=== PATIENT | female | born 1970 | race American Indian/Alaskan Native ===

== ENCOUNTER 2017-07-26 00:50 | Inpatient (IN) | payer OTHER ==
--- NOTE | 2017-07-26 01:32 | ED PDOC ---
Arrival/HPI - General Chief Complaint: ENT Problem Time Seen by Provider: 07/26/17 01:19 Historian: Patient - History of Present Illness Narrative History of Present Illness (Text): 07/26/17 01:23 Lucy Mays is a 47 year old female, whose past medical history includes hypertension and diabetes, who presents to the Emergency department complaining of epistaxis. Patient states she has been experiencing intermittent nosebleeds tonight/generalized malaise. Patient notes her blood pressure has been elevated. Patient reports she has not been compliant with her Amlodipine and Metoprolol because she is unable to afford them. Patient denies any fever, chills, chest pain, shortness of breath, nausea, vomiting, back pain, neck pain , headache, dizziness, or any other complaints. Symptom Onset: Gradual Symptom Course: Unchanged Activities at Onset: Light Context: Home Past Medical History - Provider Review Nursing Documentation Reviewed: Yes - Cardiac Hx Hypertension: Yes - Endocrine/Metabolic Hx Diabetes Mellitus Type 2: Yes - Psychiatric Hx Substance Use: No Family/Social History - Physician Review Nursing Documentation Reviewed: Yes Family/Social History: Unknown Family HX Smoking Status: no Hx Alcohol Use: No Hx Substance Use: No Allergies/Home Meds Allergies/Adverse Reactions: Allergies Penicillins Adverse Reaction (Verified 07/26/17 01:01) RASH Home Medications: Home Meds Medication Instructions Recorded Confirmed No Known Home Med 07/26/17 07/26/17 Review of Systems - Physician Review All systems were reviewed & negative as marked: Yes - Review of Systems Constitutional: Normal. absent: Fevers Eyes: Normal ENT: Epistaxis Respiratory: Normal. absent: SOB, Cough Cardiovascular: Other (+high blood pressure). absent: Chest Pain Gastrointestinal: Normal. absent: Abdominal Pain, Diarrhea, Nausea, Vomiting Genitourinary Female: Normal. absent: Dysuria, Frequency, Hematuria, Urine Output Changes Musculoskeletal: Normal. absent: Back Pain, Neck Pain Skin: Normal. absent: Rash Neurological: Normal. absent: Headache, Dizziness Endocrine: Normal Hemo/Lymphatic: Normal Psychiatric: Normal Physical Exam Vital Signs Reviewed: Yes Vital Signs Temp Pulse Resp BP Pulse Ox 07/26/17 04:51 89 18 162/106 H 100 07/26/17 04:39 87 18 152/119 H 96 07/26/17 04:35 86 164/97 H 07/26/17 04:19 85 168/101 H 07/26/17 04:01 80 18 186/113 H 96 07/26/17 03:45 102 H 22 168/21 H 96 07/26/17 02:41 101 H 22 225/132 H 95 07/26/17 01:40 106 H 18 217/137 H 97 07/26/17 01:01 97.7 F 64 18 202/135 H 96 Temperature: Afebrile Blood Pressure: Hypertensive Pulse: Regular Respiratory Rate: Normal Appearance: Positive for: Well-Appearing, Non-Toxic, Comfortable Pain Distress: None Mental Status: Positive for: Alert and Oriented X 3 - Systems Exam Head: Present: Atraumatic, Normocephalic Pupils: Present: PERRL Extroacular Muscles: Present: EOMI Conjunctiva: Present: Normal Mouth: Present: Moist Mucous Membranes Pharnyx: Present: Normal. No: ERYTHEMA, EXUDATE, TONSILS ENLARGED, Peritonsilar Swelling, Uvular Deviation, Muffled/Hoarse Voice, Strider, Soft Palate/Uvular Edema Nose (External): Present: Atraumatic Nose (Internal): Present: No Active Bleeding (Dry blood in left anterior naris, no active bleeding noted) Neck: Present: Normal Range of Motion Respiratory/Chest: Present: Clear to Auscultation, Good Air Exchange. No: Respiratory Distress, Accessory Muscle Use Cardiovascular: Present: Regular Rate and Rhythm, Normal S1, S2. No: Murmurs Abdomen: Present: Normal Bowel Sounds. No: Tenderness, Distention, Peritoneal Signs Back: Present: Normal Inspection Upper Extremity: Present: Normal Inspection. No: Cyanosis, Edema Lower Extremity: Present: Normal Inspection. No: Edema Neurological: Present: GCS=15, CN II-XII Intact, Speech Normal Skin: Present: Warm, Dry, Normal Color. No: Rashes Psychiatric: Present: Alert, Oriented x 3, Normal Insight, Normal Concentration Medical Decision Making ED Course and Treatment: 07/26/17 01:24 Impression: 47 year old female complaining of epistaxis and hypertension tonight. Plan: -- EKG -- Chest X-ray -- Labs, cardiac enzymes -- Catapres -- Reassess and disposition Progress Notes: 07/26/17 03:07 Reviewed EKG, sinus tachycardia at 101 bpm. LVH. Non-specific T wave changes laterally. 07/26/17 04:26 Chest X-ray reviewed, shows no acute processes. 07/26/17 04:31 Case discussed with medical records field technician protective signal operations supervisor, who is aware and agrees with plan. 07/26/17 04:[address] Jones, machine maintenance mechanic, who is aware and agrees with plan. Accepts pt in to hospitalist service. Pt will be admitted to the ICU for hypertensive emergency and uncontrolled diabetes mellitus. - Critical Care Critical Care Minutes: 30 minutes - Lab Interpretations Lab Results: 07/26/17 02:59 07/26/17 02:59 Lab Results 07/26/17 04:58: POC Glucose (mg/dL) 416 H* 07/26/17 02:59: WBC 9.9, RBC 5.00, Hgb 13.5, Hct 40.4, MCV 80.8, MCH 27.0, MCHC 33.4, RDW 14.0, Plt Count 313, MPV 10.5 07/26/17 02:59: Sodium 136, Potassium 4.1, Chloride 98, Carbon Dioxide 28, Anion Gap 14, BUN 25 H, Creatinine 1.2, Est GFR ( Amer) 58, Est GFR (Non- Af Amer) 48, Random Glucose 558 H*, Calcium 9.5, Total Bilirubin 0.3, AST 24, ALT 39, Alkaline Phosphatase 132 H, Lactate Dehydrogenase 685, Total Creatine Kinase 88, Troponin I 0.10, Total Protein 7.4, Albumin 3.6, Globulin 3.8, Albumin/Globulin Ratio 1.0 L 07/26/17 02:59: PT 10.6, INR 0.93, APTT 32.2 07/26/17 02:39: POC Glucose (mg/dL) 432 H* - RAD Interpretation Radiology Orders: 07/26/17 02:41 CHEST PORTABLE [RAD] Stat - EKG Interpretation Interpreted by ED Physician: Yes Type: 12 lead EKG - Medication Orders Current Medication Orders: Sodium Chloride (Sodium Chloride 0.9%) 1,000 mls @ 100 mls/hr IV .Q10H XENIA Last Admin: 07/26/17 03:28 Dose: 100 mls/hr eMAR Start Stop Document 07/26/17 03:28 MARU (Rec: 07/26/17 03:28 RG [id number]) Intravenous Solution Start Date 07/26/17 Start Time 03:28 Labetalol HCl 100 mg/ Sodium (Chloride) 100 mls @ 60 mls/hr IV .Q1H40M PRN; Protocol; 1 MG/MIN PRN Reason: TITRATE PER MD ORDER Last Admin: 07/26/17 04:19 Dose: 60 mls/hr eMAR Start Stop Document 07/26/17 04:19 RG (Rec: 07/26/17 04:19 RG [id number]) Intravenous Solution Start Date 07/26/17 Start Time 04:19 MAR Pulse and Blood Pressure Document 07/26/17 04:19 RG (Rec: 07/26/17 04:19 RG [id number]) Pulse Pulse Rate (60-90 beats/min) 85 Blood Pressure Blood Pressure (100/60-150/90 mm Hg) 168/101 Discontinued Medications Clonidine HCl (Catapres) 0.2 mg PO STAT STA Stop: 07/26/17 01:28 Last Admin: 07/26/17 01:40 Dose: 0.2 mg MAR Pulse and Blood Pressure Document 07/26/17 01:40 RG (Rec: 07/26/17 01:40 RG [id number]) Pulse Pulse Rate (60-90 beats/min) 106 Blood Pressure Blood Pressure (100/60-150/90 mm Hg) 217/137 Insulin Human Regular (Humulin R) 10 units SC STAT STA Stop: 07/26/17 02:45 Last Admin: 07/26/17 03:23 Dose: 10 units MAR Blood Glucose Document 07/26/17 03:23 RG (Rec: 07/26/17 03:27 RG [id number]) Blood Glucose Finger Stick Blood Glucose (70-120) 432 Subcutaneous Administrations Document 07/26/17 03:23 RG (Rec: 07/26/17 03:27 RG [id number]) Injection Site MAR Injection Site Left Arm Charges for Administration # of Subcutaneous Administrations 1 Labetalol HCl (Trandate) 20 mg IV STAT STA Stop: 07/26/17 02:45 Last Admin: 07/26/17 03:27 Dose: 20 mg eMAR Start Stop Document 07/26/17 03:27 RG (Rec: 07/26/17 03:27 RG [id number]) Intravenous Solution Start Date 07/26/17 Start Time 03:27 End Date 07/26/17 End time 03:29 Total Infusion Time 2 - Scribe Statement The provider has reviewed the documentation as recorded by the Scribcande Ceballos All medical record entries made by the Scribe were at my direction and personally dictated by me. I have reviewed the chart and agree that the record accurately reflects my personal performance of the history, physical exam, medical decision making, and the department course for this patient. I have also personally directed, reviewed, and agree with the discharge instructions and disposition. Disposition/Present on Arrival - Present on Arrival Any Indicators Present on Arrival: No History of DVT/PE: No History of Uncontrolled Diabetes: No Urinary Catheter: No History of Decub. Ulcer: No History Surgical Site Infection Following: None - Disposition Have Diagnosis and Disposition been Completed?: Yes Diagnosis: Hypertensive emergency, Uncontrolled diabetes mellitus Disposition: HOSPITALIZED Disposition Time: 05:01 Patient Plan: Admission Patient Problems: Current Active Problems Problem Status Onset Hypertensive emergency Acute Uncontrolled diabetes mellitus Acute Condition: STABLE Forms: [employer] ([place])
[2017-07-26] MEDS ORDERED: Insulin Regular 1 UNITS/0.01 ML ML SC STA (02:44)
[2017-07-26] MEDS ORDERED: Labetalol 5 mg/ml Inj 20ML IV STA (02:44)
[2017-07-26] MEDS ORDERED: Sodium Chloride 0.9% 1,000 ML IV SCH (02:45)
[2017-07-26] MEDS ORDERED: Labetalol 100 MG in Sodium Chloride 0.9% 80 ML IV PRN (03:34)
[2017-07-26 04:04] LABS: INR 0.93 (0.93-1.08); PARTIAL THROMBOPLASTIN TIME 32.2 Seconds (25.1-36.5); PROTHROMBIN TIME 10.6 SECONDS (9.4-12.5)
[2017-07-26 04:10] LABS: HEMOGLOBIN 13.5 g/dL (12.0-16.0); MEAN CELL VOLUME 80.8 fl (80.0-105.0); MEAN CORPUSCULAR HGB CONC 33.4 g/dl (31.0-37.0); MEAN PLATELET VOLUME 10.5 fl (7.0-11.0); WHITE BLOOD COUNT 9.9 10^3/ul (4.5-11.0)
[2017-07-26 04:17] LABS: TROPONIN I 0.1 ng/mL
[2017-07-26 04:46] LABS: ALBUMIN 3.6 g/dL (3.0-4.8); CALCIUM 9.5 mg/dL (8.4-10.5)
--- NOTE | 2017-07-26 06:15 | CP.PCM.HP ---
History of Present Illness - History of Present Illness History of Present Illness: PGY-[address] Jones ICU admission: Hypertensive emergency, Uncontrolled diabetes mellitus Ms Mays, 47 AAF, with PMHx migraine, HTN/HLD, DM2, on every other day aspirin, comes in here for prolonged epistaxis. Pt started nose bleed at 11:30pm as she gets ready to bed. Pt states that the blood looks bright red, and the amount of the bleed can fill a cup. She traveled via [place] and nose bleed stopped prior to ER arrival. Pt has a hx of nose bleed episodes about 1-2 times per week, usually after blowing her nose. Pt has a recent sinusitis x 2 week with sneezing , denying coughs. In the ED, her BP was found to be 225/130s. Pt lost her insurance and not able to refill her blood pressure medications. She was on metoprolol and amlodipine. Amlodipine was last taken in Jan 2017. Metoprolol was last taken last month. At baseline, pt sleep with >3 pillows for easy breathing. Pt has chronic leg swelling problems HR 85, 176/106, SaO2 96 Her blood glucose was 558. Gap 10 Trops 0.10 EKG: sinus tachy 101, LVH. T-wave inversion V6-I. QTc 459 CXR: pending read ED gave clonidine 0.2, insulin 10, labetalol 20. Now on trandate gtt, NS @100 ROS Denies F/C/Headahce/blurry vision Denies CP, SOB, N/V/D/C (+) freqency urination (+) nocturia. Denies dysuria Denies numbness/tingling. (+) leg swelling PMH HTN/HLD Gastritis Migraine LAVERNE from enlarged tonsil PSH FH Brother - head cancer father - DM, lung CA. Not smoking. (+) ETOH grandfather - stomach cancer Aunt - DM SH Denies smoke, drink, drug All Lemon, Penicillins, (one more antibiotics that pt daughter will follow up__) Med Metformin, amlodipine, metoprolol PMD No PMD due to lost insurance Used to see Dr Bridges, [facility], last year July Pharm No longer use. [facility], [place], [place] Present on Admission - Present on Admission Any Indicators Present on Admission: Yes History of Uncontrolled Diabetes: Yes Past Patient History - Past Social History Smoking Status: no - CARDIAC Hx Hypertension: Yes - ENDOCRINE/METABOLIC Hx Diabetes Mellitus Type 2: Yes - PSYCHIATRIC Hx Substance Use: No Meds Allergies/Adverse Reactions: Allergies Allergy/AdvReac Type Severity Reaction Status Date / Time Penicillins AdvReac RASH Verified 07/26/17 01:01 Physical Exam - Constitutional Appears: No Acute Distress - Head Exam Head Exam: ATRAUMATIC, NORMAL INSPECTION, NORMOCEPHALIC - Eye Exam Eye Exam: EOMI, Normal appearance, PERRL. absent: Scleral icterus Pupil Exam: NORMAL ACCOMODATION - ENT Exam ENT Exam: Mucous Membranes Dry Additional comments: dry blood visible near L nostril normal pharynx - Neck Exam Additional comments: supple - Respiratory Exam Respiratory Exam: Clear to Auscultation Bilateral, NORMAL BREATHING PATTERN. absent: Rhonchi, Wheezes, Respiratory Distress - Cardiovascular Exam Cardiovascular Exam: REGULAR RHYTHM, +S1, +S2. absent: Systolic Murmur - GI/Abdominal Exam GI & Abdominal Exam: Normal Bowel Sounds, Soft. absent: Tenderness - Extremities Exam Extremities exam: Positive for: pedal edema, pedal pulses present. Negative for : calf tenderness - Neurological Exam Neurological exam: Alert, Oriented x3 - Psychiatric Exam Psychiatric exam: Normal Affect, Normal Mood - Skin Skin Exam: Dry, Warm Results - Vital Signs Recent Vital Signs: Last Vital Signs Temp 97.7 F 07/26/17 01:01 Pulse 85 07/26/17 05:21 Resp 22 07/26/17 05:21 BP 176/106 H 07/26/17 05:21 Pulse Ox 96 07/26/17 05:21 - Labs Result Diagrams: 07/26/17 02:59 07/26/17 02:59 Assessment & Plan - Assessment and Plan (Free Text) Plan: Ms Mays, 47 AAF, with PMHx migraine, HTN/HLD on every other day ASA, DM2, LAVERNE from enlarged tonsilon every other day aspirin, comes in here for prolonged epistaxis, found to have hypertensive emergency (BP @ 225/130s) with questionable signs of end organ damage and uncontrolled diabetes. Neuro - Watch migraine Pulm - LAVERNE with nose mucosal bleech. Hold CPAP HS. Monitor PaO2. Card - hold ASA - decrease 20-25% BP at a time - on labetalol gtt - trend trops - monitor labs for signs of end organ damage GI - gastritis, add protonix - HHD/CL diet - NS @ 100 Endo - insulin sliding - low, accucheck - TSH, a1c - diabetic education Prophylaxis = PTX + SCD s/r/d/w Dr. Jones
[2017-07-26] MEDS ORDERED: Pantoprazole 40 mg EC Tab PO SCH (06:40)
[2017-07-26] MEDS ORDERED: Insulin Lispro (humaLOG) MEDIUM Coverage SC SCH (07:30)
[2017-07-26] MEDS: Insulin Reg-HIGH-Coverage SC SCH ×3 (08:30→16:58)
[2017-07-26] MEDS: Pantoprazole 40 mg EC Tab PO SCH (08:31)
[2017-07-26 09:16] VITALS: BMI 50.6
[2017-07-26] MEDS ORDERED: Influenza Vaccine 60 mcg/0.5 mL SYR (4YR UP) IM ONE (09:16)
[2017-07-26] MEDS ORDERED: Pneumococcal 23-Valent Vaccine IM ONE (09:16)
[2017-07-26] MEDS: Metoprolol Succinate 50 mg XL Tab PO SCH (09:22)
[2017-07-26 09:30] LABS: HDL CHOLESTEROL 35 mg/dL (29-60)
[2017-07-26 09:41] LABS: LDL CHOLESTEROL 244 mg/dL (0-129)
[2017-07-26 10:13] LABS: TROPONIN I 0.09 ng/mL
--- NOTE | 2017-07-26 10:25 | RAD ---
HISTORY: hypertensive COMPARISON: No prior. FINDINGS: LUNGS: No active pulmonary disease. PLEURA: No significant pleural effusion identified, no pneumothorax apparent. CARDIOVASCULAR: No radiographic findings to suggest acute or significant cardiovascular disease. OSSEOUS STRUCTURES: No significant abnormalities. VISUALIZED UPPER ABDOMEN: Normal. OTHER FINDINGS: None. IMPRESSION: No active disease.
[2017-07-26 10:47] LABS: HEMOGLOBIN 12.5 g/dL (12.0-16.0); MEAN CELL VOLUME 80.6 fl (80.0-105.0); MEAN CORPUSCULAR HEMOGLOBIN 27.2 pg (25.0-35.0); MEAN CORPUSCULAR HGB CONC 33.8 g/dl (31.0-37.0); MEAN PLATELET VOLUME 10.5 fl (7.0-11.0); RBC 4.59 10^6/uL (3.5-6.1); RED CELL DISTRIBUTION WIDTH 13.9 % (11.5-14.5); WHITE BLOOD COUNT 8.8 10^3/ul (4.5-11.0)
[2017-07-26 11:19] LABS: ALBUMIN 3.3 g/dL (3.0-4.8); CALCIUM 9.3 mg/dL (8.4-10.5)
--- NOTE | 2017-07-26 11:21 | CARD ---
APPROVED REPORT EKG Measurement Heart [id number] <Conclusion> Sinus tachycardia Minimal voltage criteria for LVH, may be normal variant T wave abnormality, consider lateral ischemia Abnormal ECG
--- NOTE | 2017-07-26 16:32 | CARD ---
APPROVED REPORT EXAM: Two-dimensional and M-mode echocardiogram with Doppler and color Doppler. INDICATION UNCONTROLLED HTN 2D DIMENSIONS Left Atrium (2D)4.3 (1.6-4.0cm)IVSd1.6 (0.7-1.1cm) LVDd4.4 (3.9-5.9cm)PWd1.5 (0.7-1.1cm) LVDs3.1 (2.5-4.0cm)FS (%) 28.5 % LVEF (%)55.2 (>50%) M-Mode DIMENSIONS Aortic Root3.00 (2.2-3.7cm)Aortic Cusp Exc.1.60 (1.5-2.0cm) Aortic Valve AoV Peak Xeoskcff216.0cm/Viraj Peak GR.16mmHg Mitral Valve MV E Twdljsiv94.5cm/sMV A Mpnwakks92.7cm/sE/A ratio0.8 TDI Lateral E' Peak V6.43cm/sMedial E' Peak V5.85cm/sE/Lateral E'11.4 E/Medial E'12.6 Pulmonary Valve PV Peak Lshonhxx82.0cm/sPV Peak Grad.2mmHg Tricuspid Valve TR Peak Ttwtsbcb234pl/sRAP [id number] Peak Gr.17mmHg [id number] LEFT VENTRICLE The left ventricle is normal size. There is mild concentric left ventricular hypertrophy. There is normal LV segmental wall motion.LV Ej.Fr: 55% Transmitral Doppler flow pattern is Grade I-abnormal relaxation pattern. RIGHT VENTRICLE The right ventricle is normal size. The right ventricular systolic function is normal. ATRIA The left atrium is mildly dilated. The interatrial septum is intact with no evidence for an atrial septal defect. AORTIC VALVE The aortic valve is thickened but opens well. MITRAL VALVE The mitral valve is thickened but opens well. Mitral regurgitation is mild. TRICUSPID VALVE The tricuspid valve is normal in structure. There is trace tricuspid regurgitation. PERICARDIAL EFFUSION There is no pericardial effusion. <Conclusion> The left ventricle is normal size. There is mild concentric left ventricular hypertrophy. There is normal LV segmental wall motion.LV Ej.Fr: 55% Transmitral Doppler flow pattern is Grade I-abnormal relaxation pattern. The right ventricle is normal size. The right ventricular systolic function is normal. The left atrium is mildly dilated. The interatrial septum is intact with no evidence for an atrial septal defect. The aortic valve is thickened but opens well. The mitral valve is thickened but opens well. Mitral regurgitation is mild. The tricuspid valve is normal in structure. There is trace tricuspid regurgitation. There is no pericardial effusion.
[2017-07-26 16:34] VITALS: O2SAT 97
[2017-07-26 17:00] LABS: TROPONIN I 0.07 ng/mL
[2017-07-26] MEDS ORDERED: Insulin Detemir 100 units/ml Vial (Levemir) SC SCH (22:00)
[2017-07-26] MEDS ORDERED: Insulin Human NPH/Reg 70/30 Vial(3 ml) SC SCH (22:00)
--- NOTE | 2017-07-27 06:05 | CON ---
DATE: 07/26/2017 REASON FOR THE CONSULTATION: Uncontrolled hypertension, diabetes, obesity, noncompliance with the medication, nose bleed. BRIEF CLINICAL HISTORY: This is a 47-year-old -[place] female with past history significant for nose bleed, hypertension, diabetes, obesity, noncompliance with medication, not taking medicines since last summer because lost job and insurance. Came in yesterday with nose bleed. Blood pressure found to be 225/130. Th patient was admitted to ICU, started labetalol in the ICU, currently without any medication. Cardiology consult was called for evaluation and management. The patient denies any chest pain, shortness of breath, or any palpitation. Daughter is at the bedside. PAST MEDICAL HISTORY: Significant for hypertension, hyperlipidemia, and diabetes. SOCIAL HISTORY: Denies smoking. Denies any history of alcohol abuse. FAMILY HISTORY: Noncontributory. No history of coronary artery disease. MEDICATIONS: The patient was taking Toprol-XL possibly 50 mg and Norvasc 10 possibly, last medication took in summer and then she stopped taking medication as the medication ran out and ran out the insurance. Prior to coming to the hospital, she took only one Toprol. Came essentially with a nose bleed. Denies any chest pain. PAST SURGICAL HISTORY: Significant for cholecystectomy 20 years ago. CURRENT MEDICATIONS: None. As mentioned above. ALLERGIES: NO KNOWN DRUG ALLERGIES. REVIEW OF SYSTEMS: As per HPI. PHYSICAL EXAMINATION: GENERAL: Height of the patient is 5 feet 1 inch. Weight of the patient is 268 pounds. Body mass index 50 kg/m2. VITAL SIGNS: Temperature afebrile, heart rate 90, blood pressure 176/116. HEENT: PERRLA. Extraocular muscles intact. NECK: Supple. No carotid bruit. No thyromegaly. CHEST: Clear to auscultation. HEART: S1 and S2 regular. ABDOMEN: Soft. EXTREMITIES: Clubbing, cyanosis negative. LABORATORY DATA: Blood workup as follows: WBC 9.9, hemoglobin 13.5, hematocrit 40.4, platelet count 313. Chemistry shows sodium 130, potassium 4, chloride 98, carbon dioxide 28, anion gap of 14, BUN 25, creatinine 1.2. Blood sugar 432. EKG shows normal sinus, no acute ST-T changes noted, T inversion noted in V5-V6, LVH is a strain pattern, also T inversion in I and aVL. Troponin 0.10. IMPRESSION: Uncontrolled hypertension, positive borderline troponin is secondary to demand and supply mismatch, blood pressure admitting 225/130, noncompliance with medication because the insurance ran out, obesity, diabetes, and hyperlipidemia. RECOMMENDATION: We will start lisinopril 20 mg daily, start Norvasc, start metoprolol and hydrochloride. We will get lipid profile, TSH, hemoglobin A1c. We will get echo to assist LV function. Also, we will do the serial tropin as ordered by the resident who will follow, and depending upon the hospital course, further recommendation will be made. Discussed with the patient and discussed with patient's daughter. Thank you, Dr. Araan, for providing us the opportunity in taking care of the patient, Lucy Mays. Cayetano Hampton MD
[2017-07-27] MEDS: Pantoprazole 40 mg EC Tab PO SCH (06:45)
[2017-07-27 06:52] LABS: BASO # 0.01 K/mm3 (0.0-2.0); BASO % 0.1 % (0.0-3.0); EOS # 0.2 (0.0-0.7); EOS % 1.7 % (1.5-5.0); GRAN # 6.23 (1.4-6.5); GRAN % 64.7 % (50.0-68.0); HEMOGLOBIN 13.4 g/dL (12.0-16.0); LYMPH # 2.8 (1.2-3.4); LYMPH % 28.9 % (22.0-35.0); MEAN CORPUSCULAR HGB CONC 33.8 g/dl (31.0-37.0); MEAN PLATELET VOLUME 10.4 fl (7.0-11.0); MONO # 0.4 (0.1-0.6); MONO % 4.6 % (1.0-6.0); RBC 4.96 10^6/uL (3.5-6.1); WHITE BLOOD COUNT 9.6 10^3/ul (4.5-11.0)
[2017-07-27 07:44] LABS: ALB/GLOB RATIO 0.9 (1.1-1.8); ALBUMIN 3.3 g/dL (3.0-4.8); ALT/SGPT 36 U/L (7-56); AST/SGOT 25 U/L (14-36); BLOOD UREA NITROGEN 17 mg/dL (7-21); CALCIUM 9.7 mg/dL (8.4-10.5); GFR AFRICAN-AMERICAN > 60; GFR NON-AFRICAN AMERICAN 53
[2017-07-27] MEDS: Metoprolol Succinate 50 mg XL Tab PO SCH (08:10)
[2017-07-27] MEDS: Insulin Reg-HIGH-Coverage SC SCH ×6 (08:11→22:39)
[2017-07-27] MEDS: Insulin Human NPH/Reg 70/30 Vial(3 ml) SC SCH ×2 (09:42→22:40)
--- NOTE | 2017-07-27 11:37 | CP.PCM.PN ---
<Valery Feliz - Last Filed: 07/27/17 11:33> Subjective - Date & Time of Evaluation Date of Evaluation: 07/27/17 Time of Evaluation: 07:30 - Subjective Subjective: Valery Trini DO PGY1 - IM Progress Note Patient seen and examined at bedside. Per nursing staff, no acute events overnight. Patient continues to report mild headache, denies any chest pain, cough, shortness of breath, fever, chills, abdominal pain, or dysuria. Patient continues to have markedly elevated blood pressures and blood sugar readings. Objective - Vital Signs/Intake and Output Vital Signs (last 24 hours): Temp Pulse Resp BP Pulse Ox 97.9 F 86 16 182/119 H 97 07/27/17 04:29 07/27/17 10:56 07/27/17 10:56 07/27/17 10:56 07/26/17 16:00 Intake and Output: 07/27/17 07/27/17 06:59 18:59 Intake Total 450 Output Total 1100 Balance -650 - Medications Medications: Current Medications Amlodipine Besylate (Norvasc) 10 mg PO DAILY [facility] Last Admin: 07/27/17 09:30 Dose: 10 mg Atorvastatin Calcium (Lipitor) 20 mg PO DIN [facility] Last Admin: 07/26/17 19:46 Dose: 20 mg Hydralazine HCl (Apresoline) 10 mg PO QID PRN PRN Reason: for sbp>170 Last Admin: 07/27/17 07:35 Dose: 10 mg Insulin Human Regular (Humulin R High) 0 units SC ACHS [facility] PRN Reason: Protocol Last Admin: 07/27/17 11:24 Dose: 12 units Lisinopril (Zestril) 40 mg PO DAILY [facility] Last Admin: 07/27/17 09:41 Dose: 20 mg Metoprolol Succinate (Toprol Xl) 50 mg PO BRK [facility] Last Admin: 07/27/17 08:10 Dose: 50 mg Pantoprazole Sodium (Protonix Ec Tab) 40 mg PO 0600 [facility] Last Admin: 07/27/17 06:45 Dose: 40 mg Sodium Chloride (Effort Nasal Benge) 0 ml NS TID [facility] Last Admin: 07/27/17 09:31 Dose: 1 spr - Labs Labs: 07/27/17 05:50 07/27/17 05:50 PT 10.6 SECONDS (9.4-12.5) 07/26/17 02:59 INR 0.93 (0.93-1.08) 07/26/17 02:59 APTT 32.2 Seconds (25.1-36.5) 07/26/17 02:59 - Constitutional Appears: Non-toxic, No Acute Distress - Head Exam Head Exam: ATRAUMATIC, NORMOCEPHALIC - Eye Exam Eye Exam: EOMI, Normal appearance Pupil Exam: PERRL - ENT Exam ENT Exam: Mucous Membranes Moist, Normal Exam - Neck Exam Neck Exam: Normal Inspection - Respiratory Exam Respiratory Exam: Clear to Ausculation Bilateral, NORMAL BREATHING PATTERN. absent: Rales, Rhonchi, Wheezes, Respiratory Distress, Stridor - Cardiovascular Exam Cardiovascular Exam: RRR, +S1 - GI/Abdominal Exam GI & Abdominal Exam: Soft, Normal Bowel Sounds. absent: Guarding, Rigid, Tenderness, Rebound - Extremities Exam Extremities Exam: absent: Calf Tenderness, Pedal Edema - Neurological Exam Neurological Exam: Alert, Awake, CN II-XII Intact, Oriented x3 Neuro motor strength exam: Left Upper Extremity: 5, Right Upper Extremity: 5, Left Lower Extremity: 5, Right Lower Extremity: 5 - Psychiatric Exam Psychiatric exam: Normal Affect, Normal Mood - Skin Skin Exam: Dry, Intact, Normal Color Assessment and Plan - Assessment and Plan (Free Text) Assessment: Ms Mays, 47 AAF, with PMHx migraine, HTN/HLD presented for prolonged epistaxis , found to have hypertensive emergency (BP @ 225/130s) with questionable signs of end organ damage and uncontrolled diabetes. BP improving, now on PO antihypertensives. Blood sugar poorly controlled Hypertensive Urgency - Patient is off IV antihypertensives, now only on PO, though BP still markedly elevated - BP goal before discharge <160 systolic, <90 diastolic on oral antihypertensives - Gradual lowering of blood pressure to avoid hypoperfusion - Increase lisinopril to 40 PO daily - Discontinue HCTZ; patient developed mild hyponatremia - Continue Toprol XL 50mg daily - Continue Norvasc 10mg daily Uncontrolled diabetes; HHS - Continue Humilin 70/30, increased to 16u AMHS - Continue SSI high - Accucheck ACHS - Carbohydrate consistent diet - conservation educator consult requested Hyperlipidemia - Lipid panel shows elevated total chol, TG, and LDL, with low HDL - Start lipitor 20mg PO daily - Recheck in 3 months Medication noncompliance - Social work consult requested - Patient has started application process for [facility] - Stressed to patient importance of compliance with medications GI/DVT Ppx: Protonix and SCDs Patient seen and plan discussed with Dr. Ayala <Cayetano Ayala - Last Filed: 07/27/17 16:08> Objective - Vital Signs/Intake and Output Vital Signs (last 24 hours): Temp Pulse Resp BP Pulse Ox 97.9 F 78 78 H 142/95 H 97 07/27/17 04:29 07/27/17 14:01 07/27/17 14:00 07/27/17 14:01 07/26/17 16:00 Intake and Output: 07/27/17 07/27/17 06:59 18:59 Intake Total 450 Output Total 1100 Balance -650 - Medications Medications: Current Medications Amlodipine Besylate (Norvasc) 10 mg PO DAILY [facility] Last Admin: 07/27/17 09:30 Dose: 10 mg Atorvastatin Calcium (Lipitor) 20 mg PO DIN [facility] Last Admin: 07/26/17 19:46 Dose: 20 mg Hydralazine HCl (Apresoline) 10 mg PO QID PRN PRN Reason: for sbp>170 Last Admin: 07/27/17 07:35 Dose: 10 mg Insulin Human Regular (Humulin R High) 0 units SC ACHS [facility] PRN Reason: Protocol Last Admin: 07/27/17 11:41 Dose: Not Given Lisinopril (Zestril) 40 mg PO DAILY [facility] Last Admin: 07/27/17 09:41 Dose: 20 mg Metoprolol Succinate (Toprol Xl) 75 mg PO BRK [facility] Pantoprazole Sodium (Protonix Ec Tab) 40 mg PO 0600 [facility] Last Admin: 07/27/17 06:45 Dose: 40 mg Sodium Chloride (Effort Nasal Benge) 0 ml NS TID [facility] Last Admin: 07/27/17 14:04 Dose: Not Given - Labs Labs: 07/27/17 05:50 07/27/17 05:50 PT 10.6 SECONDS (9.4-12.5) 07/26/17 02:59 INR 0.93 (0.93-1.08) 07/26/17 02:59 APTT 32.2 Seconds (25.1-36.5) 07/26/17 02:59 Attending/Attestation - Attestation I have personally seen and examined this patient.: Yes I have fully participated in the care of the patient.: Yes I have reviewed all pertinent clinical information, including history, physical exam and plan: Yes Notes (Text): 07/27/17 16:08 Medical record note made by the resident after discussion with my direction and input after the patient was personally seen and examined by me. I have reviewed the chart and agree that the record accurately reflects by personal performance of the history, physical exam, data review, and medical decision-making, in the course for the patient. I have also personally directed the plan of care.
[2017-07-27] MEDS ORDERED: Metoprolol Succinate 25 mg XL Tab PO SCH (12:45)
--- NOTE | 2017-07-27 19:20 | PN ---
DATE: 07/27/2017 REASON FOR CONSULTATION: Followup uncontrolled hypertension, diabetes, obesity, noncompliance with the medication, nosebleed. PHYSICAL EXAMINATION: VITAL SIGNS: Temperature afebrile, heart rate 90, blood pressure 175/116. HEENT: PERRLA. Extraocular muscles intact. NECK: Supple. No carotid bruit or thyromegaly. CHEST: Clear to auscultation. HEART: S1 and S2 regular. ABDOMEN: Soft. EXTREMITIES: Clubbing and cyanosis negative. LABORATORY DATA: Blood workup as follows: WBC 7.5, hemoglobin , hematocrit 39.7, platelet count 293. Chemistry shows sodium 131, potassium 3.8, chloride 96, carbon dioxide 28, anion gap of 10, BUN 17, creatinine 1.1. Hemoglobin A1c 14.4. Blood sugar 372. Troponin negative. IMPRESSION: Uncontrolled hypertension, noncompliance with the medication. Admitted with blood pressure 225/132. Stopped medication taking since last summer, obesity, diabetes, hemoglobin A1c 14.4 also reflect how poor compliance is, poorly controlled diabetes. RECOMMENDATION: We will get echo to assess LV function, increase lisinopril to 40 mg daily, continue metoprolol, continue gentle diuretics, possible versus stable. Can be discharged. Thank you, Dr. Ayala, for providing us the opportunity in taking care of Lucy Mays. For risk stratification, suggest stress test as an outpatient in 2-3 weeks. We will follow with you. We will schedule a stress test as outpatient. Paper given to the Cardiology to schedule stress test as outpatient. Cayetano Hampton MD cc: Cayetano Ayala M.D.
[2017-07-27] MEDS ORDERED: Metoprolol 1 mg/ml Inj IVP ONE (23:46)
[2017-07-28 06:11] VITALS: TEMP 98.9
[2017-07-28] MEDS: Pantoprazole 40 mg EC Tab PO SCH (06:15)
[2017-07-28 06:34] LABS: BASO # 0.02 K/mm3 (0.0-2.0); BASO % 0.2 % (0.0-3.0); EOS # 0.2 (0.0-0.7); EOS % 2.1 % (1.5-5.0); GRAN # 6.87 (1.4-6.5); HEMOGLOBIN 14.4 g/dL (12.0-16.0); LYMPH # 2.7 (1.2-3.4); LYMPH % 25.8 % (22.0-35.0); MEAN CELL VOLUME 79.8 fl (80.0-105.0); MEAN CORPUSCULAR HEMOGLOBIN 27.1 pg (25.0-35.0); MEAN PLATELET VOLUME 10.5 fl (7.0-11.0); MONO # 0.5 (0.1-0.6); MONO % 4.9 % (1.0-6.0); RBC 5.31 10^6/uL (3.5-6.1); RED CELL DISTRIBUTION WIDTH 13.9 % (11.5-14.5); WHITE BLOOD COUNT 10.3 10^3/ul (4.5-11.0)
[2017-07-28 06:59] LABS: ALB/GLOB RATIO 0.9 (1.1-1.8); ALBUMIN 3.5 g/dL (3.0-4.8); CALCIUM 9.8 mg/dL (8.4-10.5)
[2017-07-28] MEDS ORDERED: Potassium Chloride 20 mEq ER Tab PO ONE (09:09)
--- NOTE | 2017-07-28 09:38 | PN ---
DATE: 07/28/2017 REASON FOR THE DICTATION: Cardiac evaluation and uncontrolled hypertension. SUBJECTIVE: The patient denies any chest pain, shortness of breath, any palpitation. PHYSICAL EXAMINATION: VITAL SIGNS: Temperature afebrile, heart rate 75, blood pressure 158/112. HEENT: PERRLA, intact. NECK: Supple. No carotid bruit. No thyromegaly. CHEST: Clear to auscultation. HEART: S1 and S2 regular. ABDOMEN: Soft. EXTREMITIES: Clubbing and cyanosis negative. LABORATORY DATA: Blood workup as follows; WBC 10.3, hemoglobin 14.4, hematocrit 42.4, platelet count 309. Chemistry shows sodium 135, potassium 3.8, chloride 96, carbon dioxide 30, anion gap of 12, BUN 19, creatinine 1.2. IMPRESSION: Hyperlipidemia; very poorly controlled hypertension, came in with 220/140 blood pressure; poorly controlled diabetes, hemoglobin A1c 14.4; obesity. RECOMMENDATIONS: Continue amlodipine 10 mg daily. Continue lisinopril 40 daily. We will start hydralazine 50 b.i.d. If remained stable, the patient will be discharged. The patient is scheduled stress test as outpatient because of multiple risk factors for coronary artery disease on 08/03/2012 as outpatient at 8:00. Discussed with the patient. Thank you, Dr. Arana, for providing us the opportunity in taking care of the patient, Lucy Mays. We will follow with you. Cayetano Hampton MD
[2017-07-28] MEDS: Insulin Reg-HIGH-Coverage SC SCH ×2 (09:50→12:51)
[2017-07-28] MEDS: Insulin Human NPH/Reg 70/30 Vial(3 ml) SC SCH (09:51)
[2017-07-28 11:08] VITALS: BP 156/100; PULSE 80; RESP 14
[2017-07-28] MEDS ORDERED: Insulin Human NPH/Reg 70/30 Vial(3 ml) SC STA (11:51)
[2017-07-28] MEDS ORDERED: Insulin Human NPH/Reg 70/30 Vial(3 ml) SC SCH (11:52)
--- NOTE | 2017-07-28 17:32 | CP.PCM.DIS ---
<TriniRduiluischrista - Last Filed: 07/28/17 17:20> Provider - Provider Date of Admission: 07/26/17 05:02 Attending physician: Cayetano Ayala MD Consults: Cardio: Memo Time Spent in preparation of Discharge (in minutes): 55 Diagnosis - Discharge Diagnosis (1) Hypertensive urgency Status: Acute Priority: High (2) Uncontrolled diabetes mellitus Status: Acute Priority: High Hospital Course - Lab Results Lab Results: Micro Results 07/26/17 07:03 Nose MRSA Culture (Admit) - Final MRSA NOT DETECTED Most Recent Lab Values WBC 10.3 10^3/ul (4.5-11.0) 07/28/17 05:20 RBC 5.31 10^6/uL (3.5-6.1) 07/28/17 05:20 Hgb 14.4 g/dL (12.0-16.0) 07/28/17 05:20 Hct 42.4 % (36.0-48.0) 07/28/17 05:20 MCV 79.8 fl (80.0-105.0) L 07/28/17 05:20 MCH 27.1 pg (25.0-35.0) 07/28/17 05:20 MCHC 34.0 g/dl (31.0-37.0) 07/28/17 05:20 RDW 13.9 % (11.5-14.5) 07/28/17 05:20 Plt Count 309 10^3/uL (120.0-450.0) 07/28/17 05:20 MPV 10.5 fl (7.0-11.0) 07/28/17 05:20 Gran % 67.0 % (50.0-68.0) 07/28/17 05:20 Lymph % (Auto) 25.8 % (22.0-35.0) 07/28/17 05:20 [place] % (Auto) 4.9 % (1.0-6.0) 07/28/17 05:20 Eos % (Auto) 2.1 % (1.5-5.0) 07/28/17 05:20 Baso % (Auto) 0.2 % (0.0-3.0) 07/28/17 05:20 Gran # 6.87 (1.4-6.5) H 07/28/17 05:20 Lymph # (Auto) 2.7 (1.2-3.4) 07/28/17 05:20 [place] # (Auto) 0.5 (0.1-0.6) 07/28/17 05:20 Eos # (Auto) 0.2 (0.0-0.7) 07/28/17 05:20 Baso # (Auto) 0.02 K/mm3 (0.0-2.0) 07/28/17 05:20 PT 10.6 SECONDS (9.4-12.5) 07/26/17 02:59 INR 0.93 (0.93-1.08) 07/26/17 02:59 APTT 32.2 Seconds (25.1-36.5) 07/26/17 02:59 Sodium 135 mmol/L (132-148) 07/28/17 05:20 Potassium 3.8 mmol/L (3.6-5.0) 07/28/17 05:20 Chloride 96 mmol/L (98-107) L 07/28/17 05:20 Carbon Dioxide 30 mmol/L (21-33) 07/28/17 05:20 Anion Gap 12 (10-20) 07/28/17 05:20 BUN 19 mg/dL (7-21) 07/28/17 05:20 Creatinine 1.2 mg/dl (0.7-1.2) 07/28/17 05:20 Est GFR ( Amer) 58 07/28/17 05:20 Est GFR (Non-Af Amer) 48 07/28/17 05:20 POC Glucose (mg/dL) 352 mg/dL (65-110) H 07/28/17 11:25 Random Glucose 233 mg/dL (70-110) H 07/28/17 05:20 Hemoglobin A1c 14.4 % (4.2-6.5) H 07/26/17 02:59 Calcium 9.8 mg/dL (8.4-10.5) 07/28/17 05:20 Phosphorus 4.5 mg/dL (2.5-4.5) 07/26/17 10:20 Magnesium 2.0 mg/dL (1.7-2.2) 07/26/17 10:20 Total Bilirubin 0.6 mg/dL (0.2-1.3) 07/28/17 05:20 AST 23 U/L (14-36) 07/28/17 05:20 ALT 36 U/L (7-56) 07/28/17 05:20 Alkaline Phosphatase 120 U/L (38-126) 07/28/17 05:20 Lactate Dehydrogenase 554 U/L (333-699) 07/26/17 16:30 Total Creatine Kinase 73 U/L (35-230) 07/26/17 16:30 Troponin I 0.07 ng/mL D 07/26/17 16:30 Total Protein 7.3 g/dL (5.8-8.3) 07/28/17 05:20 Albumin 3.5 g/dL (3.0-4.8) 07/28/17 05:20 Globulin 3.9 gm/dL 07/28/17 05:20 Albumin/Globulin Ratio 0.9 (1.1-1.8) L 07/28/17 05:20 Triglycerides 224 mg/dL (35-160) H 07/26/17 09:15 Cholesterol 327 mg/dL (130-200) H 07/26/17 09:15 LDL Cholesterol Direct 244 mg/dL (0-129) H 07/26/17 09:15 HDL Cholesterol 35 mg/dL (29-60) 07/26/17 09:15 TSH 3rd Generation 3.42 mIU/mL (0.46-4.68) 07/26/17 02:59 - Hospital Course Hospital Course: 47 AAF, with PMHx migraine, HTN/HLD, DM2 who initially presented for prolonged epistaxis. Patient was noted to be severely hypertensive with a headache in the ER with markedly elevated blood glucose. Patient was treated with IV antihypertensives in the ER and admitted to the ICU, where she was started on PO antihypertensives. She was also started on insulin for hyperglycemia. Her blood pressure improved gradually throughout hospitalization, and insulin requirement was monitored and adjusted. She was educated on the use of insulin and monitoring of blood sugar. Patient was transferred from the ICU when BP was moderately controlled on PO antihypertensives. Today, she denies any chest pain, shortness of breath, abdominal pain, nausea, vomiting. Headache is significantly improved. She was again instructed on the importance of compliance and follow up, as well as her insulin regimen. She was given prescriptions for all her new medications, and instructions on follow up. All questions were answered to her satisfaction, and she was discharged to home. Discharge Exam - Head Exam Head Exam: ATRAUMATIC, NORMOCEPHALIC - Eye Exam Eye Exam: EOMI, Normal appearance, PERRL - ENT Exam ENT Exam: Mucous Membranes Moist - Respiratory Exam Respiratory Exam: Clear to PA & Lateral, NORMAL BREATHING PATTERN - Cardiovascular Exam Cardiovascular Exam: RRR, +S1, +S2 - GI/Abdominal Exam GI & Abdominal Exam: Normal Bowel Sounds, Soft. absent: Tenderness - Extremities Exam Extremities exam: normal inspection - Neurological Exam Neurological exam: Alert, CN II-XII Intact, Oriented x3 - Psychiatric Exam Psychiatric exam: Normal Affect, Normal Mood - Skin Skin Exam: Dry, Intact, Normal Color Discharge Plan - Discharge Medications Prescriptions: amLODIPine [Norvasc] 10 mg PO DAILY #30 tab Atorvastatin [Lipitor] 20 mg PO DIN #30 tab Glucose, Blood Test [Blood Glucose Test Strips] 1 packet XX QID #1 dev Insulin Human NPH/Reg [humulin 70/30 70 U/Ml-30 U/Ml 10 Ml] 24 units SC AMHS 30 Days ml Lancets [Glucocom Lancets] 1 each MC QID #1 packet Lisinopril [Zestril] 40 mg PO DAILY #30 tab Metoprolol Succinate [Toprol XL] 75 mg PO BRK 30 Days tab - Follow Up Plan Condition: STABLE Disposition: HOME/ ROUTINE Instructions: High Blood Pressure (DC), Diabetes Diet , Hyperglycemia, Adult ( DC), Blood Glucose Monitoring, Hemoglobin A1C Tests, High Cholesterol (DC) Additional Instructions: 1. [facility] within 1 week. Call [phone] to schedule the appointment 2. Have a repeat BMP to monitor kidney function in 1 week. 3. Maintain a daily diary of glucose and blood pressure 4. Check your blood sugar first thing in the morning, and before meals, 2-3 times daily 5. Continue to take insulin, 24 units in the morning and 24 units at night; with new insulin regimen, for any lightheadedness or other concerning symptoms, check your blood sugar, consume sugary drink or snack if low (<80), or report to the ER 6. Continue to take metoprolol 75 mg once daily, lisinopril 40mg once daily, amlodipine 10mg once daily, and lipitor 20mg once daily 7. For any new or worsening symptoms or concerns, return to the ER 8. Scheduled outpatient stress test. Referrals: Amberly Sanchez [place] [Outside] <Cayetano Ayala - Last Filed: 07/29/17 11:27> Provider - Provider Date of Admission: 07/26/17 05:02 Attending physician: Cayetano Ayala MD Time Spent in preparation of Discharge (in minutes): 38 Hospital Course - Lab Results Lab Results: Micro Results 07/26/17 07:03 Nose MRSA Culture (Admit) - Final MRSA NOT DETECTED Most Recent Lab Values WBC 10.3 10^3/ul (4.5-11.0) 07/28/17 05:20 RBC 5.31 10^6/uL (3.5-6.1) 07/28/17 05:20 Hgb 14.4 g/dL (12.0-16.0) 07/28/17 05:20 Hct 42.4 % (36.0-48.0) 07/28/17 05:20 MCV 79.8 fl (80.0-105.0) L 07/28/17 05:20 MCH 27.1 pg (25.0-35.0) 07/28/17 05:20 MCHC 34.0 g/dl (31.0-37.0) 07/28/17 05:20 RDW 13.9 % (11.5-14.5) 07/28/17 05:20 Plt Count 309 10^3/uL (120.0-450.0) 07/28/17 05:20 MPV 10.5 fl (7.0-11.0) 07/28/17 05:20 Gran % 67.0 % (50.0-68.0) 07/28/17 05:20 Lymph % (Auto) 25.8 % (22.0-35.0) 07/28/17 05:20 [place] % (Auto) 4.9 % (1.0-6.0) 07/28/17 05:20 Eos % (Auto) 2.1 % (1.5-5.0) 07/28/17 05:20 Baso % (Auto) 0.2 % (0.0-3.0) 07/28/17 05:20 Gran # 6.87 (1.4-6.5) H 07/28/17 05:20 Lymph # (Auto) 2.7 (1.2-3.4) 07/28/17 05:20 [place] # (Auto) 0.5 (0.1-0.6) 07/28/17 05:20 Eos # (Auto) 0.2 (0.0-0.7) 07/28/17 05:20 Baso # (Auto) 0.02 K/mm3 (0.0-2.0) 07/28/17 05:20 PT 10.6 SECONDS (9.4-12.5) 07/26/17 02:59 INR 0.93 (0.93-1.08) 07/26/17 02:59 APTT 32.2 Seconds (25.1-36.5) 07/26/17 02:59 Sodium 135 mmol/L (132-148) 07/28/17 05:20 Potassium 3.8 mmol/L (3.6-5.0) 07/28/17 05:20 Chloride 96 mmol/L (98-107) L 07/28/17 05:20 Carbon Dioxide 30 mmol/L (21-33) 07/28/17 05:20 Anion Gap 12 (10-20) 07/28/17 05:20 BUN 19 mg/dL (7-21) 07/28/17 05:20 Creatinine 1.2 mg/dl (0.7-1.2) 07/28/17 05:20 Est GFR ( Amer) 58 07/28/17 05:20 Est GFR (Non-Af Amer) 48 07/28/17 05:20 POC Glucose (mg/dL) 352 mg/dL (65-110) H 07/28/17 11:25 Random Glucose 233 mg/dL (70-110) H 07/28/17 05:20 Hemoglobin A1c 14.4 % (4.2-6.5) H 07/26/17 02:59 Calcium 9.8 mg/dL (8.4-10.5) 07/28/17 05:20 Phosphorus 4.5 mg/dL (2.5-4.5) 07/26/17 10:20 Magnesium 2.0 mg/dL (1.7-2.2) 07/26/17 10:20 Total Bilirubin 0.6 mg/dL (0.2-1.3) 07/28/17 05:20 AST 23 U/L (14-36) 07/28/17 05:20 ALT 36 U/L (7-56) 07/28/17 05:20 Alkaline Phosphatase 120 U/L (38-126) 07/28/17 05:20 Lactate Dehydrogenase 554 U/L (333-699) 07/26/17 16:30 Total Creatine Kinase 73 U/L (35-230) 07/26/17 16:30 Troponin I 0.07 ng/mL D 07/26/17 16:30 Total Protein 7.3 g/dL (5.8-8.3) 07/28/17 05:20 Albumin 3.5 g/dL (3.0-4.8) 07/28/17 05:20 Globulin 3.9 gm/dL 07/28/17 05:20 Albumin/Globulin Ratio 0.9 (1.1-1.8) L 07/28/17 05:20 Triglycerides 224 mg/dL (35-160) H 07/26/17 09:15 Cholesterol 327 mg/dL (130-200) H 07/26/17 09:15 LDL Cholesterol Direct 244 mg/dL (0-129) H 07/26/17 09:15 HDL Cholesterol 35 mg/dL (29-60) 07/26/17 09:15 TSH 3rd Generation 3.42 mIU/mL (0.46-4.68) 07/26/17 02:59 Attending/Attestation - Attestation I have personally seen and examined this patient.: Yes I have fully participated in the care of the patient.: Yes I have reviewed all pertinent clinical information, including history, physical exam and plan: Yes Notes (Text): 07/29/17 11:23 Medical record note made by the resident after discussion with my direction and input after the patient was personally seen and examined by me. I have reviewed the chart and agree that the record accurately reflects by personal performance of the history, physical exam, data review, and medical decision-making, in the course for the patient. I have also personally directed the plan of care. 47 AAF, with PMHx migraine, HTN/HLD,Obesity DM2, and non compliance with medication was admitted with hypertensive urgency and uncontrolled DM .patient was non compliance with her medication.Her blood pressure and diabetic medication has been adjusted.Blood pressure is better controlled with Metoprolol /Lisinopril and Amlodpine .Patient has been started on Insulin 70/30 for her DM.The issue of compliance with medication and diet was discussed in detail with her.Patient was given diabetic education prior to discharge. Prognosis is guarded. 07/29/17 11:23
== END 2017-07-28 17:50 | disposition home or self-care (01) | DRG 134 ==
LOC: ED 00:50 → ERH 05:02 → ICU 06:55 → UNDODISIN 07-28 14:51
PROVIDERS: ADMIT Internal Medicine; ATTEND Internal Medicine
DX: I16.0 Hypertensive urgency (principal); E11.65 Type 2 diabetes mellitus with hyperglycemia; R04.0 Epistaxis; E78.5 Hyperlipidemia, unspecified; I10 Essential (primary) hypertension; G43.909 Migraine, unspecified, not intractable, without status migrainosus; G47.33 Obstructive sleep apnea (adult) (pediatric); K29.70 Gastritis, unspecified, without bleeding; E66.9 Obesity, unspecified; Z91.14 Patient's other noncompliance with medication regimen